=== PATIENT | female | born 1990 | race Caucasian/White ===

== ENCOUNTER 2019-10-12 18:10 | Observation (INO) | payer OTHER ==
[~2019-10-12] VITALS: Ht 157.5 cm; Wt 74.6 kg
[2019-10-12] MEDS ORDERED: DROSPIRENONE-E1 EAC1 (18:28)
[2019-10-12 19:31] LABS: BASOPHILS # (AUTO) 0.1 (0.0-0.1); BASOPHILS % 0.8 % (0.0-1.0); EOSINOPHILS % 10.9 % (0.0-6.0); HEMATOCRIT 31.4 % (34.2-44.1); HEMOGLOBIN 9.3 g/dL (12.0-16.0); LYMPHOCYTES # (AUTO) 2.3 (1.0-3.2); LYMPHOCYTES % 26.2 % (18.0-39.1); MEAN CORPUSCULAR HEMOGLOBIN 20.8 pg (28-32); MEAN CORPUSCULAR HGB CONC 29.6 g/dL (31-35); MEAN CORPUSCULAR VOLUME 70.1 fL (81-99); MONOCYTES % 11.5 % (4.4-11.3); NEUTROPHILS # (AUTO) 4.4 (2.1-6.9); NEUTROPHILS % 50.3 % (38.7-80.0); PLATELET COUNT 486 x10e3/uL (140-360); RED BLOOD COUNT 4.48 x10e6/uL (3.6-5.1); RED CELL DISTRIBUTION WIDTH 16.4 % (11.7-14.4)
[2019-10-12 19:41] LABS: INR 0.84
[2019-10-12 19:42] LABS: PARTIAL THROMBOPLASTIN TIME 23.4 seconds (23.8-35.5)
[2019-10-12 19:51] LABS: ALANINE AMINOTRANSFERASE 10 IU/L (0-55); ALBUMIN/GLOBULIN RATIO 0.6 (0.8-2.0); ALKALINE PHOSPHATASE 61 IU/L (40-150); ANION GAP 13.6 mmol/L (8-16); BLOOD UREA NITROGEN 8 mg/dL (7-26); BUN/CREATININE RATIO 9 (6-25); CALCIUM 9.5 mg/dL (8.4-10.2); CARBON DIOXIDE 23 mmol/L (22-29); CHLORIDE 101 mmol/L (98-107); CREATININE, SERUM 0.94 mg/dL (0.57-1.11); EST GLOMERULAR FILTRATION RATE > 60 ML/MIN (60-); GLUCOSE 94 mg/dL (74-118); POTASSIUM 3.6 mmol/L (3.5-5.1); SODIUM 134 mmol/L (136-145)
[2019-10-12 20:03] LABS: PREGNANCY TEST, URINE NEGATIVE (NEGATIVE)
[2019-10-12 20:22] LABS: BILIRUBIN,URINE NEGATIVE (NEGATIVE); CLARITY,URINE CLEAR (CLEAR); COLOR,URINE YELLOW (YELLOW); KETONES,URINE NEGATIVE (NEGATIVE); LEUKOCYTE ESTERASE ,URINE NEGATIVE (NEGATIVE); NITRITE,URINE NEGATIVE (NEGATIVE); PROTEIN,URINE DIPSTICK NEGATIVE (NEGATIVE); URINE UROBILINOGEN 0.2 mg/dL (0.2 - 1)
[2019-10-12 20:38] LABS: BACTERIA,URINE RARE /HPF; EPITHELIAL CELLS,URINE RARE /LPF
[2019-10-12] MEDS: SODIUM CHLORIDE 0.9% 250ML 250 ML IV ONE (22:15)
[2019-10-12 22:22] VITALS: BP 126/69
[2019-10-12 22:30] VITALS: BP 126/69
[2019-10-13] VITALS (8 sets, daily range): BP systolic 115–125; BP diastolic 60–80
[2019-10-13] MEDS ORDERED: BISACODYL 5 MG TAB EC PO ONE ×4 (05:00→06:30)
[2019-10-13 05:13] LABS: BASOPHILS # (AUTO) 0.1 (0.0-0.1); BASOPHILS % 0.7 % (0.0-1.0); EOSINOPHILS # (AUTO) 0.9 (0.0-0.4); EOSINOPHILS % 11.2 % (0.0-6.0); HEMATOCRIT 28.2 % (34.2-44.1); HEMOGLOBIN 8.4 g/dL (12.0-16.0); LYMPHOCYTES # (AUTO) 2.1 (1.0-3.2); LYMPHOCYTES % 26.1 % (18.0-39.1); MEAN CORPUSCULAR HEMOGLOBIN 20.8 pg (28-32); MEAN CORPUSCULAR HGB CONC 29.8 g/dL (31-35); MEAN CORPUSCULAR VOLUME 69.8 fL (81-99); MONOCYTES # (AUTO) 0.9 (0.2-0.8); MONOCYTES % 10.5 % (4.4-11.3); NEUTROPHILS # (AUTO) 4.2 (2.1-6.9); NEUTROPHILS % 51.3 % (38.7-80.0); PLATELET COUNT 378 x10e3/uL (140-360); RED BLOOD COUNT 4.04 x10e6/uL (3.6-5.1); RED CELL DISTRIBUTION WIDTH 16.4 % (11.7-14.4)
[2019-10-13 05:35] LABS: ALANINE AMINOTRANSFERASE 9 IU/L (0-55); ALBUMIN 2.7 g/dL (3.5-5.0); ALBUMIN/GLOBULIN RATIO 0.6 (0.8-2.0); ALKALINE PHOSPHATASE 58 IU/L (40-150); ANION GAP 14.7 mmol/L (8-16); BLOOD UREA NITROGEN 5 mg/dL (7-26); BUN/CREATININE RATIO 6 (6-25); CALCIUM 9.2 mg/dL (8.4-10.2); CARBON DIOXIDE 22 mmol/L (22-29); CHLORIDE 104 mmol/L (98-107); CREATININE, SERUM 0.83 mg/dL (0.57-1.11); EST GLOMERULAR FILTRATION RATE > 60 ML/MIN (60-); GLUCOSE 82 mg/dL (74-118); POTASSIUM 3.7 mmol/L (3.5-5.1); SODIUM 137 mmol/L (136-145)
[2019-10-13 05:41] LABS: RETICULOCYTE % 2.4 % (0.8-2.2)
[2019-10-13 05:51] LABS: % IRON SATURATION 3 % (15-50); IRON 18 ug/dL (50-170); TOTAL IRON BINDING CAPACITY 549 ug/dL (261-478); TRANSFERRIN 392 mg/dL (180-382)
[2019-10-13 06:45] LABS: FERRITIN < 1.00 ng/mL (4.63-204.00)
[2019-10-13] MEDS ORDERED: CITRATE OF MAGNESIA 300ML BOTTLE PO ONE ×2 (07:00→08:00)
--- NOTE | 2019-10-13 07:00 | NUR ---
RCD PT AT BED PT IS ALERT AND ORIENTED PT RESTING ON BED IV PATENT BY SALINE FLUSH PT NPO FOR PROCEDURE FAMILY AT BED SIDE BED LOW AND LOCKED CALL LIGHT IN REACH
--- NOTE | 2019-10-13 11:48 | NUR ---
Nutrition Screen Note RD Recommendation for Physician: -Advance diet as tolerated to GI soft Plan of Care: RD following, monitoring for tolerance and adequacy Nutrition reason for involvement: Nutrition Risk Trigger MST Primary Diagnose(s): anemia, GI bleed PMH: none, per pt Ht: 62in Wt: 164lb BMI: 30.1kg/m2 IBW: 110lb +/- 10% RD Assessment: (10/13/2019) Chart reviewed. Labs and meds reviewed. 29yo F, who was admitted for anemia and GI bleed. Visited pt in the room. Pt reported diarrhea for over last 6 months, which has become progressively worse. Pt has lost over 6lbs since Thanksgi. Upon NFPA, pt appeared nourished with no sign of fat/ muscle loss. +BM with blood today. Pt was prepping for colonoscopy today. Pt complained of some nausea from taking laxatives. Currently NPO. Will continue to monitor and follow. Current Diet: NPO Malnutrition Evaluation (10/13/2019) The patient does not meet criteria for a specified degree of malnutrition at this time. Will re-evaluate at follow-up as appropriate. Energy intake: <75% of estimated energy requirements for >7 days Weight loss: 6lb weight loss in 2 weeks, ~3% weight loss Fat loss: no loss identified Muscle loss: loss identified Supporting Evidence: Fluid accumulation: no accumulation identified Functional Status: no changes Diet Education Needs Assessment: Diet education not indicated. Nutrition Care Level: low Signed: Yodit El, MS, RD, LD
--- NOTE | 2019-10-13 18:30 | NUR ---
PT WENT TO PROCEDURE IN SAFE CONDITION
[2019-10-13] MEDS ORDERED: HYOSCYAMINE 0.125 MG TAB ONE (19:17)
[2019-10-13] MEDS ORDERED: FENTANYL CITRATE/PF 100MCG/2 ML INJ ONE (19:44)
[2019-10-13] MEDS ORDERED: MIDAZOLAM HCL 2 MG/2 ML VIAL ONE (19:44)
--- NOTE | 2019-10-13 20:50 | NUR ---
Received patient from PACU via stretcher. Alert and oriented. Assisted to bed. No complains at this time. New orders received for low residue diet.
[2019-10-13] MEDS: DICYCLOMINE HCL 20 MG TAB PO SCH (21:16)
[2019-10-13] MEDS ORDERED: IRON SUCROSE 100 MG in SODIUM CHLORIDE 0.9% 100 ML 100 ML IV SCH (21:30)
[2019-10-13 21:40] LABS: WBC,FECAL (FECAL LACTOFERRIN) POSITIVE (NEGATIVE)
[2019-10-14 00:33] VITALS: BP 121/69
--- NOTE | 2019-10-14 01:01 | Operative Report ---
DATE OF PROCEDURE: 10/13/2019 SURGEON: Mingo Montgomery MD PROCEDURE: Colonoscopy with biopsies. INDICATIONS FOR COLONOSCOPY: Bloody diarrhea. MEDICATIONS: The patient was done under MAC. Please see anesthesiologist's note. PROCEDURE IN DETAIL: With the patient in left lateral decubitus position, flexible fiberoptic Olympus colonoscope was inserted into the rectum with ease and advanced all the way to the cecum. Mucosa overlying the cecum revealed some diffuse erythema. The ileocecal valve was intubated and the scope was advanced into the terminal ileum. The mucosa overlying the terminal ileum grossly appeared to be within normal limits. Biopsies were obtained. The scope was then withdrawn back into the colon. It was then withdrawn slowly and mucosa overlying the ascending colon also revealed some diffuse erythema and some friability and biopsies were obtained. Mucosa overlying the transverse, descending, sigmoid was diffusely ulcerated and random biopsies were obtained. The rectum was not as involved, but there was some moderate proctitis, and also biopsies were obtained from the rectum. The scope was then retroflexed into the distal rectum and small internal hemorrhoids were noted, none of which was actively bleeding. The scope was then straightened out, it was subsequently withdrawn. After securing an adequate stool specimen, that was sent for the appropriate stool studies. The patient tolerated the procedure well. IMPRESSION: 1. Ulcerative colitis, biopsies obtained. 2. Internal hemorrhoids, none actively bleeding. PLAN: Follow up histology. Follow up stool studies. Initiate low residue diet. Check IBD panel. Check CRP and sedimentation rate. Mingo Montgomery MD [place] /[id number] cc: David Montgomery MD
[2019-10-14 05:50] VITALS: BP 118/66
--- NOTE | 2019-10-14 07:05 | NUR ---
RCD PT AT BED PT IS ALERT AND ORIENTED PT RESTING ON BED IV PATENT BY SALINE FLUSH BED LOW AND LOCKED CALL LIGHT IN REACH
[2019-10-14 08:11] VITALS: BP 125/67
[2019-10-14 09:00] VITALS: BP 125/67
[2019-10-14] MEDS: DICYCLOMINE HCL 20 MG TAB PO SCH ×2 (09:00→13:00)
--- NOTE | 2019-10-14 10:44 | NUR ---
AC TO Lan MORIN PT CAN GO HOME IF OK WITH DR Sheryl MORIN SO PAGED TO Sheryl MORIN TO NOTIFY THAT
[2019-10-14 11:42] VITALS: BP 121/68
--- NOTE | 2019-10-14 11:45 | NUR ---
AGAIN PAGED DR Sheryl MORIN TO GET DISCHARGE APPROVAL
--- NOTE | 2019-10-14 12:50 | NUR ---
AGAIN PAGED AND NOTIFIED THE CHARGE NURSE
[2019-10-14 14:54] LABS: C DIFFICILE TOXIN A&B AMP PROB NEGATIVE (NEGATIVE)
--- NOTE | 2019-10-14 14:56 | NUR ---
PAGED DR Lan MORIN TO NOTIFY THAT PAGED TO DR Sheryl MORIN FOR SEVERAL TIMES HE IS NOT ANSWERING AND LEFT MESSAGE
--- NOTE | 2019-10-14 14:58 | NUR ---
PAGED AND GIVE MESSAGE TO THE ANSWERING SERVICE
--- NOTE | 2019-10-14 15:15 | NUR ---
PAGED AGAIN TO DR Lan MORIN
[2019-10-14 15:35] VITALS: BP 113/63
--- NOTE | 2019-10-14 16:00 | NUR ---
PAGED AGAIN TO DR Lan MORIN EMERGENCY CALL
--- NOTE | 2019-10-14 16:25 | NUR ---
DR Lan MORIN RETURNED THE CALL AND GOT DISCHARGE ORDER
--- NOTE | 2019-10-14 16:38 | NUR ---
PATIENT WENT HOME IN SAFE CONDITION WITH HER MOTHER
== END 2019-10-14 16:40 | disposition home or self-care (01) ==
LOC: ER 18:10 → ERHOLD 20:54 → MED/SURG2 22:22
DX: K51.911 Ulcerative colitis, unspecified with rectal bleeding (principal); K64.8 Other hemorrhoids
CPT/HCPCS: 36415 ×3; 45380; 80053 ×2; 81001; 81025; 82270; 82607; 82728; 82948; 83540; 83630; 83993; 84466; 85025 ×2; 85045; 85610; 85651; 85730; 86140; 86256; 86671; 86850; 86900; 86920; 87045; 87177; 87328; 87493; 88305; 93005; 99284; G0378 ×3; J1756; J2250; J3010

== ENCOUNTER → 2022-05-27 | Day surgery (SDC) | payer OTHER ==
[~2022-05-27] MED LIST: APRISO0.375 GM PO; DROSPIRENONE-E1 EAC1 PO; FENTANYL CITRATE/PF 100MCG/2 ML INJ ONE; HYOSCYAMINE SULFATE 0.5 MG/ML INJ ONE; LIDOCAINE HCL 2% LOCAL INJ 5 ML SDV VIAL INJ ONE; MIDAZOLAM HCL 2 MG/2 ML VIAL ONE; PROPOFOL IV EMULSION 10 MG/ML 20 ML VIAL ONE
[2022-05-27 09:30] VITALS: BP 116/88
== END | disposition home or self-care (01) ==
LOC: OR 07:01
PROVIDERS: ATTEND Internal Medicine Gastroenterology
DX: K51.90 Ulcerative colitis, unspecified, without complications (principal); K63.5 Polyp of colon; Z71.3 Dietary counseling and surveillance; Z01.812 Encounter for preprocedural laboratory examination; Z20.822 Contact with and (suspected) exposure to COVID-19; Z68.30 Body mass index [BMI] 30.0-30.9, adult
CPT/HCPCS: 0223U; 36415; 45380; 45385; 81025; 82308; 83993; 86140; J1980; J2001; J2250; J2704; J3010; 45378

== ENCOUNTER → 2024-12-19 | Day surgery (SDC) | payer BC ==
[~2024-12-19] MED LIST changes: +GLUCAGON FOR INJ 1 MG VIAL ONE; +KETAMINE 50MG/5ML SYR ONE; -MIDAZOLAM HCL 2 MG/2 ML VIAL ONE; +ONDANSETRON HCL INJ 2MG/ML 2ML 2 MG/ML VIAL ONE; +PRENATA CHEWAB1 EACH PO; +PROPOFOL IV EMULSION 50 ML IV ONE; +ZYRTEC10 M3 PO
[2024-12-19] MEDS: LACTATED RINGER'S 1,000 ML ONE (11:02)
[2024-12-19 13:37] VITALS: TEMP 98.2
[2024-12-19 13:50] VITALS: BP 110/89; PULSE 89; RESP 16; O2SAT 98
[2024-12-19 14:45] LABS: WBC,FECAL (FECAL LACTOFERRIN) POSITIVE (NEGATIVE)
[2024-12-19 14:46] LABS: CDIFF AG QUIK CHEK NEGATIVE (NEGATIVE); CDIFF TOX QUIK CHEK NEGATIVE (NEGATIVE)
[2024-12-22 19:10] LABS: ENDOMYSIAL ANTIBODIES, IGA Negative (Negative)
[2024-12-22 21:13] LABS: IMMUNOGLOBULIN A 156 mg/dL (87-352); TISSUE TRANSGLUTAMINASE IGA AB <2 U/mL (0-3)
== END | disposition home or self-care (01) ==
LOC: OR 10:43
PROVIDERS: ATTEND Internal Medicine Gastroenterology
DX: K29.50 Unspecified chronic gastritis without bleeding (principal); K52.9 Noninfective gastroenteritis and colitis, unspecified; K20.90 Esophagitis, unspecified without bleeding; M54.9 Dorsalgia, unspecified; F41.9 Anxiety disorder, unspecified
CPT/HCPCS: 43239; 45380; 81025; 82784; 83516; 83630; 83993; 86140; 86256; 87045; 87177; 87324; 87328; 87449; J1610; J1980; J2003; J2405; J2470; J2704 ×2; J3010; J7121; 45378

== ENCOUNTER → 2025-03-11 | Outpatient (REF) | payer BC ==
[~2025-03-11] MED LIST changes: -FENTANYL CITRATE/PF 100MCG/2 ML INJ ONE; -GLUCAGON FOR INJ 1 MG VIAL ONE; -HYOSCYAMINE SULFATE 0.5 MG/ML INJ ONE; -KETAMINE 50MG/5ML SYR ONE; -LIDOCAINE HCL 2% LOCAL INJ 5 ML SDV VIAL INJ ONE; -ONDANSETRON HCL INJ 2MG/ML 2ML 2 MG/ML VIAL ONE; -PROPOFOL IV EMULSION 10 MG/ML 20 ML VIAL ONE; -PROPOFOL IV EMULSION 50 ML IV ONE
== END ==
LOC: US 11:21
PROVIDERS: ATTEND Nurse Practitioner
DX: R10.10 Upper abdominal pain, unspecified (principal)
CPT/HCPCS: 76700